=== PATIENT | female | born 1965 | race Caucasian/White ===

== ENCOUNTER → 2018-03-13 | Day surgery (SDC) | payer BC ==
[~2018-03-13] MED LIST: ACETAMINOPHEN 1000 MG/100 ML 100 ML IV ONE; BACITRACIN 50,000 UNIT VIAL ONE; BUPIVACAINE HCL 0.5% INJ 30 ML VIAL INJ ONE; CLINDAMYCIN PHOS 900MG/ D5W 50 50 ML IV ONE; DEXAMETHASONE SOD PHOS 10 MG/1 ML VIAL ONE; DEXAMETHASONE SOD PHOS INJ 4 MG/ML VIAL ONE; FENTANYL CITRATE/PF 100MCG/2 ML INJ ONE; KETOROLAC TROMETHAMINE 30 MG/ML VIAL ONE; LIDOCAINE HCL 2% LOCAL INJ 5 ML SDV VIAL INJ ONE; OMEPRAZOLE40 MG PO; ONDANSETRON HCL INJ 2 MG/ML VIAL ONE; PREMPRO 0.3 MG1 EACH PO; PROAIR HFA INH8.5 GM IH; PROPOFOL IV EMULSION 10 MG/ML 20 ML VIAL ONE; SEVOFLURANE INHAL SOLN 250 ML PEN BTL ONE; SINGULAIR10 MG PO
--- NOTE | 2018-03-13 08:06 | Operative Report ---
DATE OF PROCEDURE: March 13, 2018 PREOPERATIVE DIAGNOSES 1. Right hallux valgus. 2. Right tailor's bunion. POSTOPERATIVE DIAGNOSES 1. Right hallux valgus. 2. Right tailor's bunion. PLANNED PROCEDURES 1. Left Darvin bunionectomy with 1st metatarsal osteotomy and internal fixation, right foot. 2. Left tailor's bunionectomy. SURGEON: Dr. Raz DPM SULFIDE HEAD OPERATOR: Alysia Banda DPM ANESTHESIA: General with a postoperative block consisting of 20 mL of 0.5% Marcaine plain mixed with 1 mL of dexamethasone phosphate. HEMOSTASIS: Pneumatic thigh tourniquet set at 350 mmHg for a total time of approximately 40 minutes. MATERIALS 1. Two 2 mm x 12 mm cortical bone screws, Verenice. 2. 2-0 Vicryl. 3. 3-0 Vicryl. 4. 4-0 nylon. ESTIMATED BLOOD LOSS: Less than 10 mL. PATHOLOGY: None. PROCEDURE NOTE: The patient was seen in the preoperative waiting room where the correct procedure and site was identified. The patient was brought into the operating room and placed on the operating table in the supine position. General anesthesia was initiated at this time. A well-padded pneumatic tourniquet was placed about the patient's left thigh. The left foot, ankle and leg was then scrubbed, prepped and draped in the usual aseptic manner. The left foot, ankle and leg was exsanguinated with an Esmarch bandage, and the pneumatic thigh tourniquet was inflated to 350 mmHg for a total time of approximately 40 minutes. Attention was directed the medial aspect of the patient's left 1st metatarsophalangeal joint where a 5 cm curvilinear incision was made medial to the extensor hallucis longus tendon. The incision was carried through subcutaneous tissues them from deeper underlying structures. All vital neurovascular structures were identified and retracted medially and laterally, and all bleeders were cauterized or ligated as deemed necessary. Attention was then directed to the 1st interspace where through the same incision a full lateral release was performed consisting of deep transverse metatarsal ligament, lateral collateral ligament, and the fibular sesamoid ligament. The hallux was then put through a range of motion and found to be functioning in more proper anatomic alignment. Next, attention was directed back to the medial metatarsal head where an inverted-L capsulotomy was performed to allow for good visualization of the 1st metatarsal head. The medial eminence was resected and passed off to the back table. Next, a medial to lateral Chevron osteotomy was performed with a to allow for proper fixation. The capital fragment was transposed laterally approximately 3 to 5 mm and impacted onto the shaft of the 1st metatarsal. It was temporarily fixated with a K-wire using techniques of AO fixation. Two 2 mm x 12 mm cortical bone screws were placed. The fixation site is stable. This was confirmed via intraoperative fluoroscopy. The wound was then flushed with copious amounts of sterile saline. Capsule and deep tissue were reapproximated with 2-0 Vicryl, subcutaneous tissue with 3-0 Vicryl and the skin was closed using a running interlocking stitch with 4-0 nylon. Attention was then directed to the lateral aspect of the patient's left foot where a 3 cm curvilinear incision was made directly over the 5th metatarsophalangeal joint. The incision was carried through subcutaneous tissues them from deeper underlying structures. All vital neurovascular structure were identified and retracted medially and laterally. All bleeders were cauterized or ligated as deemed necessary. An inverted-L capsulotomy was performed at the level 5th metatarsophalangeal joint to give exposure to the 5th metatarsal head. Utilizing a sagittal saw, the lateral eminence was resected and passed off to the back table. All bony edges were smoothed utilizing a rotary bur. The wound was flushed with copious amounts of sterile saline. Capsular and deep tissue were reapproximated with 2-0 Vicryl, subcutaneous tissue with 3-0 Vicryl and the skin was closed using a running interlocking stitch with 4-0 nylon. The incision site was dressed with Adaptic, 4 x 4s, Kerlix, Jaylan wrap, and a postop shoe. The patient tolerated the procedure and anesthesia well. The patient was transferred to the postoperative recovery room with vital signs stable and vascular status intact. Patient was monitored there for a short period time before being sent home with follow written and oral instructions: 1. Keep the dressing clean, dry and tact. 2. The patient is to remain partial weightbearing in a postop shoe and to avoid excessive ambulation until being seen in the office. 3. The patient was given the office number and instructed to contact us if any problems should arise. DICTATED BY ALYSIA BANDA DPM Job#: [id number] KAYLAH
[2018-03-13 09:00] VITALS: BP 115/61
== END | disposition home or self-care (01) ==
LOC: OR 05:03
PROVIDERS: ATTEND Podiatrist Foot & Ankle Surgery
DX: M20.12 Hallux valgus (acquired), left foot (principal); M21.622 Bunionette of left foot; J45.909 Unspecified asthma, uncomplicated; K58.9 Irritable bowel syndrome, unspecified; Z88.0 Allergy status to penicillin; Z01.810 Encounter for preprocedural cardiovascular examination; Z86.19 Personal history of other infectious and parasitic diseases
CPT/HCPCS: 28110; 28296; 93005; J1100 ×2; J1885; J2001; J2405